=== PATIENT | male | born 1990 | race Caucasian/White ===

== ENCOUNTER 2016-06-17 08:08 | Emergency (ER) | payer MEDICAID ==
--- NOTE | 2016-06-17 09:02 | ED ---
GI/ HPI - HPI Summary HPI Summary: Pt here w/ dysuria and pain after ejaculation x > 1 month. Was evaluated at and tests were WNL at his time of d/c however a cx result later returned w/ positive findings of ureaplasma parvum. Pt did not received anbx during visit and was instructed to f/u w/ PCP. Unfortunately he doesn't have a PCP and therefore did not f/u. He denies fever, chills, N/V/D, nightsweats, weight loss , matias scrotal pain although at times he reports pain in his penis, scrotal area and up into his lower pelvic area - this is unprovoked when it occurs. Denies penile d/c, lesions/sores and no changes of scrotal skin other than possible HPV warts per another provider's evaluation. Denies urinary hesitation , weak stream but he does having discomfort in his perineal area at times. He reports his BM's are normal and non painful. No known h/o prostatitis. No h/o kidney stones nor UTI's. Has unprotected intercourse with 1 girlfriend - states she's "sensitive" and gets yeast infections easily. Other urine cx's reveal neg results for gonorrhea, chalmydia, syphillis, m. homini species. He did not have testing for trichomonas. - History of Current Complaint Chief Complaint: EDUrogenitalProblems Time Seen by Provider: 06/17/16 08:18 Stated Complaint: BURNING WITH URINATION Hx Obtained From: Patient Pain Intensity: 7 - Allergy/Home Medications Allergies/Adverse Reactions: Allergies Allergy/AdvReac Type Severity Reaction Status Date / Time No Known Allergies Allergy Verified 06/17/16 08:15 PMH/Surg Hx/FS Hx/Imm Hx Previously Healthy: Yes GI History: Reports: Other GI Disorders - Hepatitis B - passed from mother Infectious Disease History: No Infectious Disease History: Reports: Hx Hepatitis - A (pt reports B on 06/17/2016) , History Other Infectious Disease - HSV 1 Denies: Traveled Outside the [place] in Last 30 Days - Family History Known Family History: Positive: Cardiac Disease, Other - liver cancer (mom) - Social History Occupation: Student Lives: Alone Alcohol Use: None - w/o ETOH dependence Hx Substance Use: No Substance Use Type: Reports: None Smoking Status (MU): Former Smoker Review of Systems Constitutional: Negative Negative: Chest Pain Negative: Shortness Of Breath Gastrointestinal: Other - see HPI Positive: see HPI Negative: Arthralgia, Myalgia, Edema Skin: Other - see HPI Negative: Headache, Weakness, Paresthesia, Numbness Psychological: Normal All Other Systems Reviewed And Are Negative: Yes Physical Exam Triage Information Reviewed: Yes Vital Signs On Initial Exam: Initial Vitals Temp Pulse Resp BP Pulse Ox 97.4 F 53 16 159/92 100 06/17/16 08:11 06/17/16 08:11 06/17/16 08:11 06/17/16 08:11 06/17/16 08:11 Vital Signs Reviewed: Yes Appearance: Positive: Well-Appearing, No Pain Distress, Well-Nourished Skin: Positive: Warm, Dry Head/Face: Positive: Normal Head/Face Inspection Eyes: Positive: Normal, EOMI, Conjunctiva Clear - anicteric ENT: Positive: Hearing grossly normal, Pharynx normal - mucosa moist Respiratory/Lung Sounds: Positive: Breath Sounds Present Cardiovascular: Positive: Normal, RRR Abdomen Description: Positive: Nontender, No Organomegaly, Soft. Negative: CVA Tenderness (R), CVA Tenderness (L) Bowel Sounds: Positive: Present Male Genital Exam: Positive: normal genitalia, normal prostate - NTTP, other - "bag of worms" Lt > Rt. Negative: no hernia, bleeding, epididymal tenderness, inguinal tenderness, lesions, scrotum tenderness (R), scrotum tenderness (L), testicular tenderness (R), testicular tenderness (L), urethral discharge Musculoskeletal: Positive: Normal, Strength/ROM Intact Neurological: Positive: Normal, Sensory/Motor Intact, Alert, Oriented to Person Place, Time, CN Intact II-III Psychiatric: Positive: Normal Diagnostics - Vital Signs Vital Signs Temp Pulse Resp BP Pulse Ox 06/17/16 08:11 97.4 F 53 16 159/92 100 - Laboratory Lab Statement: Any lab studies that have been ordered have been reviewed, and results considered in the medical decision making process. 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 Complete your course of antibiotics and follow-up with urology for reassessment. If symptoms persist, you may have a different infection as well which was not tested today, trichomonas. Call Dr. Valdes, urologist, today to schedule an appointment next week. You were also found to have varicoceles - these are benign but may affect fertility. Follow-up with Dr. Valdes for this issue as well. *If you develop fever, chills, nausea, vomiting, acute scrotal pain/perineal pain, ab pain or penile discharge, difficulty urinating/moving bowels, return to ED
[2016-06-17 09:09] LABS: Urine Bacteria Absent (Absent); Urine Bilirubin Negative (Negative); Urine Glucose Negative (Negative); Urine Nitrite Negative (Negative)
--- NOTE | 2016-06-17 09:50 | RAD ---
Indication: Bilateral scrotal pain. Real-time sonography of the scrotum was performed. The right testis measures 4.6 x 2.3 x 3.4 cm. No intratesticular masses are noted. Doppler interrogation demonstrates normal flow in the right testis. The right epididymis measures 9 x 14 mm. No hydrocele is noted. Tubular structures are noted consistent with right sided varicocele. This is a small to moderate size. The left testis measures 4.9 x 2.5 x 2.8 cm. No intratesticular masses are noted. Doppler interrogation demonstrates normal flow in the left testis. The epididymal head measures 10 x 14 mm with a epididymal cyst measuring up to 6 mm. Dilated tubular structures with flow are noted in the left scrotum consistent with left-sided varicocele. No evidence of hydrocele is noted. IMPRESSION: NO INTRATESTICULAR MASSES ARE NOTED. DILATED TUBULAR STRUCTURES WITH VENOUS FLOW IS NOTED CONSISTENT WITH BILATERAL VARICOCELES WORSE ON THE LEFT ON THE RIGHT.
[2016-06-17 10:08] VITALS: BP 147/84
== END 2016-06-17 10:07 | disposition home or self-care (01) ==
LOC: ED 08:08
DX: I86.1 Scrotal varices (principal); N34.1 Nonspecific urethritis; Z87.891 Personal history of nicotine dependence; R30.0 Dysuria
CPT/HCPCS: 76870; 81003; 99282

== ENCOUNTER 2017-06-29 07:07 | Emergency (ER) | payer MEDICAID ==
[2017-06-29 07:20] VITALS: BP 143/80
--- NOTE | 2017-06-29 07:57 | UC ---
Shane Lezama Stephanie, scribed for Hattie Glynn MD on 06/29/17 at 0746 . Throat Pain/Nasal Volodymyr HPI - HPI Summary HPI Summary: The pt is a 26 y/o M presenting to with sinus congestion that began one week ago . The Pt attempted to self treat with Mucinex. Symptoms include cough, sinus pressure, a large amount of green/yellow phlegm, daily epistaxis, nasal congestion, nasal pressure, chronic abd and genital pain. Not using analgesics or nasal sprays. Denies ear pressure, ear pain, SOB, sore throat, fever, nausea and vomiting. The pt reports having an influenza-like illness with fever for the past 3 weeks that has mostly cleared up. - History of Current Complaint Chief Complaint: UCGeneralIllness Stated Complaint: SINUS ISSUE Time Seen by Provider: 06/29/17 07:15 Hx Obtained From: Patient Onset/Duration: Gradual Onset, Lasting Weeks - 1, Still Present Severity: Moderate Pain Intensity: 1 Pain Scale Used: 0-10 Numeric Cough: Sputum Appears - green/yellow Associated Signs & Symptoms: Positive: Sinus Discomfort. Negative: Fever, Vomiting - Allergies/Home Medications Allergies/Adverse Reactions: Allergies Allergy/AdvReac Type Severity Reaction Status Date / Time No Known Allergies Allergy Verified 06/29/17 07:20 Home Medications: Home Medications Guaifenesin [Mucinex Maximum Strength] 1,200 mg PO DAILY PRN 06/29/17 [History Confirmed 06/29/17] Omeprazole 40 mg PO DAILY 06/29/17 [History Confirmed 06/29/17] PMH/Surg Hx/FS Hx/Imm Hx - Additional Past Medical History Additional PMH: epigastric pain evaluated late 2016 with egd Previously Healthy: Yes GI/ History: Other - chronic epigastric pain, history of pancreatitis Other GI/ History: pancreatitis Other History Of: Hepatitis B - Surgical History Surgical History: None - Family History Known Family History: Positive: Cardiac Disease, Other - liver cancer (mom), father of dementia - Social History Occupation: Employed Part-time Lives: Alone Alcohol Use: None Substance Use Type: None Smoking Status (MU): Former Smoker - Immunization History Most Recent Influenza Vaccination: declined Review of Systems Constitutional: Negative Skin: Negative Eyes: Negative ENT: Sinus Congestion, Sinus Pain/Tenderness, Other - daily nose bleeds, green/ yellow phlegm Respiratory: Cough Cardiovascular: Negative Gastrointestinal: Abdominal Pain - gets about 90% reduction of pain with regular use of omeprazole. Drinking about 2 cups of coffee per day, no alcohol Genitourinary: Other - chronic left groin pain, evaluated by urology without cause found. Motor: Negative Neurovascular: Negative Musculoskeletal: Negative Neurological: Negative Psychological: Negative All Other Systems Reviewed And Are Negative: Yes Physical Exam Triage Information Reviewed: Yes Appearance: Well-Appearing Vital Signs: Initial Vital Signs Temp 99 F 06/29/17 07:16 Pulse 61 06/29/17 07:16 Resp 20 06/29/17 07:16 BP 143/80 06/29/17 07:16 Pulse Ox 99 06/29/17 07:16 Eye Exam: Normal Eyes: Positive: Conjunctiva Clear ENT: Positive: Pharynx normal, Nasal congestion - boggy nasal mucosa, TMs normal Neck: Positive: Supple, Nontender, No Lymphadenopathy Respiratory: Positive: Lungs clear, Normal breath sounds Cardiovascular: Positive: RRR, No Murmur Abdomen Description: Positive: Nontender, No Organomegaly Musculoskeletal Exam: Normal Neurological Exam: Normal Psychological Exam: Normal Skin Exam: Normal Throat Pain/Nasal Course/Dx - Course Course Of Treatment: The pt is a 26 y/o M with c/o sinus congestion with yellow/ green phlegm that began one week ago. The pt reports a previous flu like illness that lasted over the past 3 weeks but has since mostly resolved. Pt medications reviewed this visit. - Differential Dx/Diagnosis Differential Diagnosis/HQI/PQRI: Pharyngitis, Sinusitis, URI Provider Diagnoses: acute bilateral maxillary sinusitis. Discharge - Discharge Plan Condition: Stable Disposition: HOME Prescriptions: Amoxicillin/Clavulanate TAB* [Augmentin TAB 875*] 875 mg PO BID #20 tab Patient Education Materials: Sinusitis (ED) Referrals: Paulo Puente MD [Primary Care Provider] - Additional Instructions: For sinus infection, begin augmentin 875mg twice daily. This can cause loose stools. You can take it with food, and eat yogurt and probiotic foods to decrease the diarrhea. To relieve sinus pressure, I suggest Flonase 2 sprays to both nostrils once daily to help shrink the swelling in the nasal passages. This should not cause rebound symptoms. You can also use saline spray (Newberry spray) to the nostrils to help to decrease the nose bleeds. This is safe to use regularly. Swabbing just inside the nasal passage with a little bit of topical antibiotic on a Qtip followed by saline spray at night often helps to decrease the nose bleeds. The documentation as recorded by the tanviribShane cameron Stephanie accurately reflects the service I personally performed and the decisions made by me, Hattie Glynn MD.
== END 2017-06-29 07:45 | disposition home or self-care (01) ==
LOC: UCEAST 07:07
DX: J01.00 Acute maxillary sinusitis, unspecified (principal); R10.13 Epigastric pain; G89.29 Other chronic pain; B19.10 Unspecified viral hepatitis B without hepatic coma; Z87.891 Personal history of nicotine dependence
CPT/HCPCS: 99212; G0463

== ENCOUNTER 2017-09-04 16:30 | Emergency (ER) | payer MEDICAID ==
[2017-09-04 16:41] VITALS: BP 135/71
--- NOTE | 2017-09-04 16:57 | ED ---
Abdominal Pain/Male - HPI Summary HPI Summary: 27-year-old male presents with the bowel pain for the past 5 months. He states he was seen by GI has scoped on a month and a half ago. He states his scope was normal except for yeast. He states he was given medication for it without relief. He states that he takes omeprazole daily. He states his symptoms have not changed all expect for intensity. He denies any fevers. Denies any nausea vomiting. States his pain does not change with food. He has a follow-up with GI in a couple weeks. He is looking for something more for the pain. has a history of pancreatitis but states does not feel like such. has not been drinking. patient admits to dysuria but declined to give urine sample. no flank pain or hematuria. - History of Current Complaint Chief Complaint: UCAbdominalPain Stated Complaint: ABDOMINAL PAIN Time Seen by Provider: 09/04/17 16:47 Pain Intensity: 7 - Allergies/Home Medications Allergies/Adverse Reactions: Allergies Allergy/AdvReac Type Severity Reaction Status Date / Time No Known Allergies Allergy Verified 09/04/17 16:41 Home Medications: Home Medications Calcium Carbonate CHEW TAB* [Tums*] PRN 09/04/17 [History] PMH/Surg Hx/FS Hx/Imm Hx Endocrine/Hematology History: Denies: Hx Diabetes Cardiovascular History: Denies: Hx Hypertension GI History: Reports: Other GI Disorders - Hepatitis B - passed from mother, pancreatitis Denies: Hx Jaundice History: Denies: Hx Renal Disease - Surgical History Surgery Procedure, Year, and Place: ENDOSCOPY Infectious Disease History: No Infectious Disease History: Reports: Hx Hepatitis - HEP B, ? HEP A, History Other Infectious Disease - HSV 1 Denies: Traveled Outside the [place] in Last 30 Days - Family History Known Family History: Positive: Unknown, Cardiac Disease, Other - liver cancer ( mom), father of dementia - Social History Alcohol Use: None Hx Substance Use: Yes Substance Use Type: Reports: None Smoking Status (MU): Current Some Day Smoker Review of Systems Negative: Fever Negative: Chest Pain Negative: Shortness Of Breath Positive: Abdominal Pain. Negative: Vomiting, Diarrhea, Nausea All Other Systems Reviewed And Are Negative: Yes Physical Exam Triage Information Reviewed: Yes Vital Signs On Initial Exam: Initial Vitals Temp Pulse Resp BP Pulse Ox 98.6 F 65 16 135/71 99 09/04/17 16:35 03/26/18 16:35 09/04/17 16:35 09/04/17 16:35 09/04/17 16:35 Vital Signs Reviewed: Yes Appearance: Positive: Well-Appearing Skin: Positive: Warm, Dry Head/Face: Positive: Normal Head/Face Inspection Eyes: Positive: Normal, EOMI, JESSICA, Conjunctiva Clear ENT: Positive: Normal ENT inspection, Pharynx normal, TMs normal Respiratory/Lung Sounds: Positive: Clear to Auscultation, Breath Sounds Present Cardiovascular: Positive: Normal, RRR Abdomen Description: Positive: Soft, Other: - mild LUQ tenderness Bowel Sounds: Positive: Present Musculoskeletal: Positive: Normal Neurological: Positive: Normal Psychiatric: Positive: Normal Diagnostics - Vital Signs Vital Signs Temp Pulse Resp BP Pulse Ox 09/04/17 16:35 98.6 F 65 16 135/71 99 - Laboratory Lab Statement: Any lab studies that have been ordered have been reviewed, and results considered in the medical decision making process. Abdominal Pain Fem Course/Dx - Course Course Of Treatment: 27-year-old male presents with the bowel pain for the past 5 months. He states he was seen by GI has scoped on a month and a half ago. He states his scope was normal except for yeast. He states he was given medication for it without relief. He states that he takes omeprazole daily. He states his symptoms have not changed all expect for intensity. He denies any fevers. Denies any nausea vomiting. States his pain does not change with food. He has a follow-up with GI in a couple weeks. He is looking for something more for the pain. on exam mild LUQ pain. discussed will add maalox for pain as likely related to gastritis. told if anything changes to get evualuated in the ED. told to follow up with GI for continued care. will have follow up with primary as blood pressure in pre-htn range. patient understand and agrees with plan. - Diagnoses Differential Diagnosis/HQI/PQRI: Pancreatitis, Urinary Tract Infection, Other - gastritis Provider Diagnoses: Abdominal pain Discharge - Sign-Out/Discharge Documenting (check all that apply): Discharge - Discharge Plan Condition: Good Disposition: HOME Prescriptions: Al Hydrox/Mg Hydrox/Simet LIQ* [Maalox Plus*] 30 ml PO Q6H PRN #1 bottle PRN Reason: Indigestion Patient Education Materials: Diet for Stomach Ulcers and Gastritis (ED) Referrals: Paulo Puente MD [Primary Care Provider] - Additional Instructions: Take maalox 30ml every 6 hours for stomach pain continue omeprazole as prescribed Follow up with GI Return to ED if develop any new or worsening symptoms - Billing Disposition and Condition Condition: GOOD Disposition: HOME
== END 2017-09-04 17:09 | disposition home or self-care (01) ==
LOC: UCEAST 16:30
DX: R10.12 Left upper quadrant pain (principal); B19.10 Unspecified viral hepatitis B without hepatic coma; Z72.0 Tobacco use
CPT/HCPCS: 99212; G0463

== ENCOUNTER 2018-02-21 11:01 | Emergency (ER) | payer MEDICAID ==
[2018-02-21 11:37] VITALS: BP 148/60
--- NOTE | 2018-02-21 11:46 | UC ---
Eye Complaint HPI - HPI Summary HPI Summary: 27 yo male presents with "eye strain". 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 Since starting that job he has had pain in his eyes worse as the day goes on. Also develops a headache mostly in the back of his head. He has taken ibuprofen with mild relief. Has never seen an eye doctor, but says his vision is fine. Denies fever, chills, dizziness, vision changes, trauma, redness, sinus symptoms, sore throat, cough, SOB, chest pain. - History of Current Complaint Chief Complaint: UCEye Stated Complaint: EYE COMPLAINT Time Seen by Provider: 02/21/18 11:46 Hx Obtained From: Patient Onset/Duration: Gradual Onset Severity Initially: Moderate Severity Currently: Moderate Pain Intensity: 5 Pain Scale Used: 0-10 Numeric - Allergies/Home Medications Allergies/Adverse Reactions: Allergies Allergy/AdvReac Type Severity Reaction Status Date / Time No Known Allergies Allergy Verified 02/21/18 11:37 Home Medications: Home Medications Ibuprofen [[employer] [employer] Ibuprofen] 500 mg PO ONCE PRN 02/21/18 [History Confirmed 02/21/18] PMH/Surg Hx/FS Hx/Imm Hx - Additional Past Medical History Additional PMH: None Other History Of: Hepatitis B - Surgical History Surgical History: Yes Surgery Procedure, Year, and Place: ENDOSCOPY - Family History Known Family History: Positive: Unknown, Cardiac Disease, Other - liver cancer ( mom), father of dementia - Social History Occupation: Employed Full-time Lives: With Family Alcohol Use: None Substance Use Type: None Smoking Status (MU): Current Some Day Smoker - Immunization History Most Recent Influenza Vaccination: declined Review of Systems Constitutional: Negative Skin: Negative Eyes: Other - Eye pain ENT: Negative Respiratory: Negative Cardiovascular: Negative Neurovascular: Negative Neurological: Negative Psychological: Negative All Other Systems Reviewed And Are Negative: Yes Physical Exam - Summary Physical Exam Summary: GENERAL: WDWN. No pain distress. SKIN: No rashes, sores, lesions, or open wounds. HEENT: Head: AT/NC Eyes: EOM intact. PERRLA. B/L Eyes without erythema, edema, injection, or discharge. No FBs appreciated. NTTP orbits. Nose: NTTP maxillary and frontal sinus. NECK: Supple. Nontender. No lymphadenopathy. CHEST: CTAB. No r/r/w. No accessory muscle use. Breathing comfortably and in no distress. CV: RRR. Without m/r/g. Pulses intact. Cap refill <2seconds MSK: Cervical spine: NTTP. FROM. NEURO: Alert. PSYCH: Age appropriate behavior. Triage Information Reviewed: Yes Vital Signs: Initial Vital Signs Temp 98.2 F 02/21/18 11:33 Pulse 65 02/21/18 11:33 Resp 18 02/21/18 11:33 BP 148/60 02/21/18 11:33 Pulse Ox 100 02/21/18 11:33 Vital Signs Reviewed: Yes Eye Complaint Course/Dx - Course Course Of Treatment: OS/OD/OU 20/20. Suspect pt is experiencing his symptoms due to his new job and straining his eyes at work. Strongly advised him to f/u with an eye doctor for an eye exam. - Differential Dx/Diagnosis Provider Diagnoses: Eye strain Discharge - Sign-Out/Discharge Documenting (check all that apply): Patient Departure All imaging exams completed and their final reports reviewed: No Studies - Discharge Plan Condition: Stable Disposition: HOME Prescriptions: Cyclobenzaprine TAB* [Flexeril 10 MG TAB*] 10 mg PO BID PRN #14 tab PRN Reason: Pain Patient Education Materials: Eye Pain (ED) Referrals: Paulo Puente MD [Primary Care Provider] - Navid Jensen MD [Medical Doctor] - As Soon As Possible Additional Instructions: If you develop a fever, shortness of breath, chest pain, new or worsening symptoms - please call your PCP or go to the ED. 1) Please call an [facility] to schedule an eye exam. Information for some have been provided below [facility] Address: [place] [address] - Billing Disposition and Condition Condition: STABLE Disposition: Home
== END 2018-02-21 12:16 | disposition home or self-care (01) ==
LOC: UCEAST 11:01
DX: H53.10 Unspecified subjective visual disturbances (principal); F17.200 Nicotine dependence, unspecified, uncomplicated
CPT/HCPCS: 99212; G0463

== ENCOUNTER 2018-05-31 07:31 | Emergency (ER) | payer MEDICAID ==
[2018-05-31 07:41] VITALS: BP 126/85
--- NOTE | 2018-05-31 08:05 | UC ---
Throat Pain/Nasal Volodymyr HPI - HPI Summary HPI Summary: 27-year-old male comes in to clinic with a chief complaint of sore throat. Been going on for 3 days. He does have a runny nose. Some cough but overall no chest congestion. He's tried a throat lozenge that helped briefly but then the throat pain came right back. Swallowing makes the pain worse. No fevers recorded. - History of Current Complaint Chief Complaint: UCRespiratory Stated Complaint: SORE THROAT RESP ISSUE Time Seen by Provider: 05/31/18 07:55 Pain Intensity: 7 - Allergies/Home Medications Allergies/Adverse Reactions: Allergies Allergy/AdvReac Type Severity Reaction Status Date / Time No Known Allergies Allergy Verified 05/31/18 07:41 PMH/Surg Hx/FS Hx/Imm Hx Previously Healthy: Yes Other History Of: Hepatitis B - Surgical History Surgical History: None Surgery Procedure, Year, and Place: ENDOSCOPY - Family History Known Family History: Positive: Unknown, Cardiac Disease, Other - liver cancer ( mom), father of dementia - Social History Alcohol Use: None Substance Use Type: None Smoking Status (MU): Former Smoker - Immunization History Most Recent Influenza Vaccination: declined Review of Systems All Other Systems Reviewed And Are Negative: Yes Constitutional: Positive: Negative Skin: Positive: Negative Eyes: Positive: Negative ENT: Positive: Sore Throat, Nasal Discharge, Sinus Congestion Respiratory: Positive: Negative Cardiovascular: Positive: Negative Gastrointestinal: Positive: Negative Motor: Positive: Negative Neurovascular: Positive: Negative Musculoskeletal: Positive: Negative Neurological: Positive: Negative Psychological: Positive: Negative Is Patient Immunocompromised?: No Physical Exam Triage Information Reviewed: Yes Appearance: No Pain Distress, Well-Nourished, Ill-Appearing - MILD Vital Signs: Initial Vital Signs Temp 98.0 F 05/31/18 07:35 Pulse 58 05/31/18 07:35 Resp 16 05/31/18 07:35 BP 126/85 05/31/18 07:35 Pulse Ox 98 05/31/18 07:35 Vital Signs Reviewed: Yes Eye Exam: Normal Eyes: Positive: Conjunctiva Clear ENT: Positive: Pharyngeal erythema, Nasal congestion, Nasal drainage, TMs normal , Uvula midline Neck exam: Normal Neck: Positive: Supple Respiratory: Positive: Lungs clear, Normal breath sounds, No respiratory distress Cardiovascular: Positive: RRR Musculoskeletal Exam: Normal Musculoskeletal: Positive: Strength Intact, ROM Intact Neurological Exam: Normal Neurological: Positive: Alert, Muscle Tone Normal Psychological Exam: Normal Psychological: Positive: Age Appropriate Behavior Skin Exam: Normal Throat Pain/Nasal Course/Dx - Course Course Of Treatment: We discussed viral versus bacterial infections and the role of antibiotics. We discussed getting a rapid strep test. At this time the patient prefers to be on antibiotic. - Differential Dx/Diagnosis Provider Diagnosis: Pharyngitis Discharge - Sign-Out/Discharge Documenting (check all that apply): Patient Departure All imaging exams completed and their final reports reviewed: No Studies - Discharge Plan Condition: Stable Disposition: HOME Prescriptions: Amoxicillin/Clavulanate TAB* [Augmentin TAB 875*] 875 mg PO BID #20 tab Patient Education Materials: Pharyngitis (ED) Referrals: Paulo Puente MD [Primary Care Provider] - Additional Instructions: FOLLOW UP WITH YOUR DOCTOR IF NOT COMPLETELY IMPROVED. GET RECHECKED FOR ANY WORSENING OF YOUR CONDITION OR QUESTIONS OR CONCERNS. - Billing Disposition and Condition Condition: STABLE Disposition: Home
== END 2018-05-31 08:10 | disposition home or self-care (01) ==
LOC: UCEAST 07:31
DX: J02.9 Acute pharyngitis, unspecified (principal); R09.89 Other specified symptoms and signs involving the circulatory and respiratory systems; Z87.891 Personal history of nicotine dependence
CPT/HCPCS: 99212; G0463

== ENCOUNTER → 2018-09-27 10:48 | Day surgery (SDC) | payer SELFPAY ==
[~2018-09-27 10:48] MED LIST: Atracurium* 10 MG/ML 10 ML VIAL ONE; Buffered Lidocaine 1% SYRIN* 1 ML/SYRINGE INTRADERM ONE; Bupivacaine 0.25% SDV PF* 10 ML VIAL INJ ONE; Bupivacaine 0.5%* 50 ML VIAL ONE; Dexamethasone TAB* 4 MG ONE; Dexamethasone TAB* 4 MG PO ONE; DiMENhydriNATE IV* 50 MG/ML VIAL IV PUSH PRN; Famotidine IV* 10 MG/ML 2 ML (20 mg) IV ONE; Famotidine IV* 10 MG/ML 2 ML (20 mg) ONE; Flumazenil* 0.1 MG/ML 5 ML MDV ONE; Glycopyrrolate IV* 0.2 MG/ML 1 ML VIAL ONE; KETAMINE HCL* 50 MG/ML 10 ML VIAL ONE; Lactated Ringers 1000 ML Bag* 1,000 ML IV SCH; Lidocaine 2% PF * 5 ML VIAL ONE; Midazolam* 1 MG/ML 5 ML VIAL (5 MG) ONE; Morphine 4 MG/ML VIAL (1 ml) 4 MG/ML VIAL IV PRN; Morphine 4 MG/ML VIAL (1 ml) 4 MG/ML VIAL ONE; Naloxone* 0.4 MG/ML 1 ML VIAL IV PRN; Neostigmine Methylsulfate* 1 MG/ML 10 ML VIAL (1 mg/ml) ONE; Ondansetron ODT TAB* 4 MG ONE; Ondansetron TAB* 4 MG PO ONE; PROCHLORPERAZINE INJ 5 MG/ML 2 ML VIAL IV PRN; Propofol* 10 MG/ML 20 ML BTL ONE; Scopolamine 1.5 mg* PATCH TRANSDERM PRN; Scopolamine PATCH Remove* 1 NOTE MISC PATCH OFF ONE; ceFAZolin 2 GM in NS PREMIX(*) 2 GM/100 ML BAG IVPB ONE; fentaNYL* 50 MCG/ML 2 ML VIAL (100 MCG VIAL) ONE; fentaNYL* 50 MCG/ML 5 ML VIAL (250 MCG VIAL) ONE; nitroGLYCERIN IV VIAL* 5 MG/ML VIAL ONE; oxyCODONE/Acetamin 5/325 MG* TAB ONE
[2018-09-27] MEDS: oxyCODONE/Acetamin 5/325 MG* TAB PO PRN ×2 (15:12→15:15)
[2018-09-27] MEDS: fentaNYL* 50 MCG/ML 2 ML VIAL (100 MCG VIAL) IV PRN ×2 (15:39→16:07)
--- NOTE | 2018-09-27 15:58 | OP ---
Operative Report - Blank - Operative Report Date of Operation: 09/27/18 Note: PATIENT: Froy Lr DATE OF : 1990 DATE OF SURGERY: 09/27/2018 SURGEON: Trell Batista MD CLIENT CARE REPRESENTATIVE: BLAIR Ross, whos assistance was necessary for positioning, retraction, help with instrumentation, and closure. ANESTHESIOLOGIST: Dr. Fair PREOPERATIVE DIAGNOSIS: Left Achilles tendon rupture POSTOPERATIVE DIAGNOSIS: Left Achilles tendon rupture OPERATION: Left Achilles tendon repair ANESTHESIA: General IMPLANTS: none TOURNIQUET TIME: Less than 60 minutes with a well-padded thigh tourniquet at 250mmHg SPECIMENS: none ESTIMATED BLOOD LOSS: minimal COMPLICATIONS: none STATUS: Stable from the operating room to the recovery room and then home. INDICATIONS FOR PROCEDURE: Froy sustained a left Achilles tendon rupture playing soccer. Both operative and non operative treatment alternatives were reviewed. Further, the nature and risks of surgery were reviewed in careful detail in the office as well as in the preoperative holding area. Our discussions regarding the risks of surgery included, but were not limited to, infection, wound problems, nerve injury, neuroma, RSD, persistent symptoms, blood clot, re-rupture or failure to heal, failure of the surgery, and even the remote chance of catastrophic complication , including loss of limb. DESCRIPTION OF PROCEDURE: The patient was seen in the preoperative holding unit and informed written consent was obtained. The appropriate extremity was marked. The patient was then brought to the operating room and carefully positioned on the operating room table. Anesthesia was induced. All bony prominences were padded with great care. A well-padded thigh tourniquet was placed. A chlorhexidine based pre- scrub was performed followed by a chloraprep prep and drape in standard sterile fashion. A surgical safety pause was then conducted in which we confirmed the appropriate patient, extremity, planned procedure, availability of equipment, indication and administration of prophylactic antibiotics, and DVT prophylaxis in the form of a compression boot on the non-surgical extremity. An Esmarch exsanguination of the extremity was performed and the tourniquet was inflated. I then began by making a 3 cm incision slightly posteromedial overlying the Achilles tendon. I carried the dissection down through the soft tissue and exposed the peritenon. I then came through this sharply in line with the Achilles. I exposed the Achilles tendon, which was completely ruptured. We irrigated out hematoma. At this point, I utilized an Allis clamp to pull the proximal segment distally and passed a malleable between the tendon and the peritenon posteriorly. This mobilized the proximal segment back to its proper location. I then passed a bent ringed forceps within the peritenon around the tendon proximally. We used a Christopher needle to pass #2 Fiberwire through the skin and then through the forceps, Achilles, and then through the other side. By pulling the forceps back out of the wound, we brought the suture out through the wound having been passed through the tendon. We repeated this two additional times, moving approximately 1 cm distally through the proximal segment. We similarly used the bent forceps to pass 3 strands of #2 Fiberwire through the distal segment. These sutures all had excellent purchase on the tendon. At this point, we placed a bump underneath the dorsum of the left foot to plantarflex the ankle. We then tied the sutures together, positioning the knot away from the skin edges. This nicely reapproximated the tendon ends with resting tension of the Achilles similar to the contralateral extremity, which had been assessed prior to prepping and draping. There was a restored Oden test. We then irrigated copiously. We closed in layers meticulously utilizing 0 Vicryl for the peritenon layer, 3-0 Monocryl for the subdermal layer, and 3-0 nylon for the skin. A sterile dressing was then applied followed by a splint with the ankle in resting equinus position. The patient was then awakened from anesthesia and transferred to the recovery room in stable condition. There were no complications. All needle and sponge counts were correct at the end of the case. ATTESTATION: I attest I was present and scrubbed and performed the critical portions of the procedure myself. POSTOPERATIVE PLAN: The patient will remain [id number] for two weeks and follow up in two weeks for likely suture removal and Steri-Strip application. We will then progress via my postoperative protocol.
[2018-09-27 17:20] VITALS: BP 135/82
== END | disposition home or self-care (01) ==
LOC: OR 10:48
PROVIDERS: ATTEND Orthopaedic Surgery
DX: S86.012A Strain of left Achilles tendon, initial encounter (principal); F17.210 Nicotine dependence, cigarettes, uncomplicated; W21.02XA Struck by soccer ball, initial encounter; Y93.66 Activity, soccer; Y92.328 Other athletic field as the place of occurrence of the external cause
CPT/HCPCS: A9270-GY; J0690; J2250; J2270; J2704; J2710; J3010; J3490; J8540

== ENCOUNTER 2019-02-11 06:45 | Emergency (ER) | payer MEDICAID, OTHER ==
--- NOTE | 2019-02-11 07:22 | ED ---
Dizziness - HPI Summary HPI Summary: This patient is a 28 year old M presenting to [facility] with a chief complaint of dizziness since 1 month ago. Patient reports unquenchable thirst and dry mouth. Patient states he drinks 3 gallons of water each day. Patient reports frequent urination. Patient states that he gets up to urinate 4-5 times per night, resulting in lack of sleep. Patient reports recent weight loss and fatigue. Patient states that he plays soccer. Patient states that he tore his Achilles tendon in September 2018. Since then, patient states he has been less active which is why he thought he was losing weight. Patient denies pain. The patient rates the pain 0/10 in severity. Symptoms aggravated by nothing. Symptoms alleviated by nothing. Patient additionally complains that his heart occasionally skips a beat after which he states he has chest tightness which is alleviated by raising his left arm. Patient states that this is chronic. Patient states that he uses a NicoDerm patch. Patient takes probiotics and enzymes, and denies any other medications. - History Of Current Complaint Chief Complaint: EDDizziness Stated Complaint: DIZZY PER PT Time Seen by Provider: 02/11/19 07:01 Hx Obtained From: Patient Onset/Duration: Still Present Timing: Constant Severity Currently: None Character: Dizzy Aggravating Factor(s): Nothing Alleviating Factor(s): Nothing Associated Signs And Symptoms: Positive: Other: - unquenchable thirst and dry mouth, frequent urination, lack of sleep, recent weight loss and fatigue - Allergies/Home Medications Allergies/Adverse Reactions: Allergies Allergy/AdvReac Type Severity Reaction Status Date / Time DDT Allergy Difficulty Uncoded 02/11/19 06:48 Breathing Home Medications: Home Medications L. Acidophilus/Dig Enz Cmb 5 [Probiotic-Digestive Enzymes] 1 each PO TID [History Confirmed 02/11/19] PMH/Surg Hx/FS Hx/Imm Hx Endocrine/Hematology History: Denies: Hx Diabetes Cardiovascular History: Denies: Hx Hypertension, Hx Pacemaker/ICD, Other Cardiovascular Problems/ Disorders Respiratory History: Denies: Other Respiratory Problems/Disorders GI History: Denies: Hx Jaundice, Other GI Disorders History: Denies: Hx Renal Disease, Other Problems/Disorders Musculoskeletal History: Reports: Other Musculoskeletal History - Torn achilles tendon- left Denies: Hx Rheumatoid Arthritis, Hx Osteoporosis Sensory History: Denies: Hx Contacts or Glasses, Hx Hearing Aid Opthamlomology History: Denies: Hx Contacts or Glasses Neurological History: Denies: Other Neuro Impairments/Disorders Psychiatric History: Denies: Hx Panic Disorder - Surgical History Surgery Procedure, Year, and Place: ENDOSCOPY. left Achilles tendon repair 09/27 Hx Anesthesia Reactions: No Infectious Disease History: Yes Infectious Disease History: Reports: Hx Hepatitis - HEP B, History Other Infectious Disease - HSV 1 Denies: Traveled Outside the [place] in Last 30 Days - Family History Known Family History: Positive: Cardiac Disease, Other - liver cancer (mom), father of dementia - Social History Alcohol Use: None Hx Substance Use: No Substance Use Type: Reports: None Hx Tobacco Use: Yes Smoking Status (MU): Current Some Day Smoker Type: Cigarettes Amount Used/How Often: Rarely Have You Smoked in the Last Year: Yes Review of Systems Positive: Fatigue, Other - unquenchable thirst and dry mouth Positive: Other - recent weight loss Positive: frequency - urination Neurological: Other - Dizziness Positive: Other - lack of sleep All Other Systems Reviewed And Are Negative: Yes Physical Exam - Summary Physical Exam Summary: Appearance: The patient is well-nourished in no acute distress and in no acute pain. Skin: The skin is warm and dry and skin color reflects adequate perfusion. HEENT: The head is normocephalic and atraumatic. The pupils are equal and reactive. The conjunctivae are clear and without drainage. Nares are patent and without drainage. Mouth reveals dry mucous membranes and the throat is without erythema and exudate. The external ears are intact. The ear canals are patent and without drainage. The tympanic membranes are intact. Neck: The neck is supple with full range of motion and non-tender. There are no carotid bruits. There is no neck vein distension. Respiratory: Chest is non-tender. Lungs are clear to auscultation and breath sounds are symmetrical and equal. Cardiovascular: Heart is regular rate and rhythm. There is no murmur or rub auscultated. There is no peripheral edema and pulses are symmetrical and equal. Abdomen: The abdomen is soft and non-tender. There are normal bowel sounds heard in all four quadrants and there is no organomegaly palpated. Musculoskeletal: There is no back tenderness noted. Extremities are non-tender with full range of motion. There is good capillary refill. There is no peripheral edema or calf tenderness elicited. Neurological: Patient is alert and oriented to person, place and time. The patient has symmetrical motor strength in all four extremities. Cranial nerves are grossly intact. Deep tendon reflexes are symmetrical and equal in all four extremities. Triage Information Reviewed: Yes Vital Signs On Initial Exam: Initial Vitals Temp Pulse Resp BP Pulse Ox 98.5 F 79 15 133/102 98 02/11/19 06:46 02/11/19 06:46 02/11/19 06:46 02/11/19 06:46 02/11/19 06:46 Vital Signs Reviewed: Yes Diagnostics - Vital Signs Vital Signs Temp Pulse Resp BP Pulse Ox 02/11/19 07:01 67 20 99 02/11/19 06:58 75 20 100 02/11/19 06:56 70 150/99 98 02/11/19 06:46 98.5 F 79 15 133/102 98 - Laboratory Lab Results: Lab Results 02/11/19 Range/Units 06:51 POC Glucose (mg/dL) > 444 H* (70-100) mg/dL Result Diagrams: 02/11/19 07:06 02/11/19 07:08 Lab Statement: Any lab studies that have been ordered have been reviewed, and results considered in the medical decision making process. Dizzy Course/Dx - Course Course Of Treatment: Mr. Lr was found to be quite hyperglycemic without being in DKA. He was given fluids and an insulin bolus and drip was started prior to his labs coming back with a concern that he was likely in DKA. I consult to the hospitalist Dr. Khalil and she came to the department and evaluated the patient. - Diagnoses Provider Diagnoses: Hyperglycemia without ketosis - Provider Notifications Discussed Care Of Patient With: Asha Khalil Time Discussed With Above Provider: 08:35 Instructed by Provider To: Other - Dr. Khalil, Hospitalist, agrees to consult Discharge ED - Sign-Out/Discharge Documenting (check all that apply): Patient Departure - Discharge Patient Received Moderate/Deep Sedation with Procedure: No - Discharge Plan Condition: Good Disposition: HOME Prescriptions: Insulin Glargine,Hum.rec.anlog [Lantus Solostar 5x3 ML PENS] 10 units SUBCUT DAILY #1 box Pen Needle, Diabetic [Ultra-Fine Micro Pen Needle] 1 each MC DAILY #100 dis.needle Referrals: Concepcion George NP [Medical Doctor] - (This is the [employer]. ) Paulo Puente MD [Primary Care Provider] - (Follow up with Dr Puente in 4-7 days or establish with [facility] internal medicine (they have an office just up the road from the hospital) [phone].) Juan Jose Cuenca MD [Medical Doctor] - (Try to get appointment for 1-2 weeks. ) Additional Instructions: 1. Activity as tolerated. 2. Return to the ER for any concerning issues. - Billing Disposition and Condition Condition: GOOD Disposition: Home - Attestation Statements Document Initiated by Scribe: Yes Documenting Scribe: Angeles Ramirez Provider For Whom Fern is Documenting (Include Credential): Nirmal Thompson MD Scribe Attestation: Angeles Lezama , scribed for Nirmal Thompson MD on 02/11/19 at 1528. Scribe Documentation Reviewed: Yes Provider Attestation: The documentation as recorded by the Angeles guan accurately reflects the service I personally performed and the decisions made by me, Nirmal Thompson MD Status of Scribe Document: Viewed
[2019-02-11 07:28] LABS: ABS Eosinophils 0.1 10^3/ul (0-0.6); ABS Lymphocytes 1.7 10^3/ul (1.0-4.8); ABS Monocytes 0.4 10^3/ul (0-0.8); ABS Neutrophils 2.5 10^3/ul (1.5-7.7); Eosinophil % 1.4 %; Hematocrit 44 % (42-52); Hemoglobin 15.6 g/dL (14.0-18.0); Lymphocyte % 36.4 %; Mean Corpuscular HGB Conc 35 g/dL (31-36); Mean Corpuscular Hemoglobin 30 pg (27-31); Mean Corpuscular Volume 85 fL (80-94); Mean Platelet Volume 8.5 fL (7.4-10.4); Nucleated Red Blood Cells % 0.2; Platelet Count 211 10^3/uL (150-450); Red Blood Count 5.22 10^6 /uL (4.18-5.48); Red Cell Distribution Width 13 % (10-15); White Blood Count 4.7 10^3/uL (3.5-10.8)
[2019-02-11] MEDS ORDERED: Insulin REGULAR(*) 1 UNITS UNIT IV PUSH ONE (07:38)
[2019-02-11] MEDS ORDERED: NS 0.9% 1000 ML** 1,000 ML IV ONE (07:38)
[2019-02-11 07:55] LABS: ALT 23 U/L (7-52); AST 16 U/L (13-39); Albumin 4.3 g/dL (3.2-5.2); Albumin/Globulin Ratio 1.7 (1-3); Alkaline Phosphatase 74 U/L (34-104); Anion Gap 7 mmol/L (2-11); Blood Urea Nitrogen 16 mg/dL (6-24); C Reactive Protein < 1.00 mg/L (<8.01); CO2 Carbon Dioxide 29 mmol/L (22-32); Calcium 9.6 mg/dL (8.6-10.3); Chloride 95 mmol/L (101-111); EGFR African American 106.2 (>60); EGFR Non-African American 87.7 (>60); Globulin 2.6 g/dL (2-4); Potassium 4.1 mmol/L (3.5-5.0); Sodium 131 mmol/L (135-145); Total Protein 6.9 g/dL (6.4-8.9)
[2019-02-11] MEDS ORDERED: Insulin Infusion 100unit/100mL 100 UNITS/100 ML UNIT IV SCH (08:00)
[2019-02-11 08:03] LABS: Glucose 692 mg/dL (70-100)
[2019-02-11] MEDS ORDERED: Insulin GLARGINE(*) 1 UNITS UNIT SUBCUT ONE (09:08)
[2019-02-11 11:12] VITALS: BP 146/78
--- NOTE | 2019-02-11 13:08 | CONS ---
CC: Dr. Puente* CONSULTATION REPORT: DATE OF CONSULT: 02/11/19 PRIMARY CARE PROVIDER: Dr. Puente. CHIEF COMPLAINT: Increased thirst, increased urination, mild blurry vision and weight loss. HISTORY OF PRESENT ILLNESS: Mr. Lr is a 28-year-old generally healthy male who states that over the last 2 weeks or so, he has noticed increased thirst, increased urination. He felt as if his vision has been blurry and he has lost about 20 pounds in the last 2 months. He was out to [facility] the day prior to admission. He states that he was eating poorly and developed some dizziness. When he got home, he told himself he still felt poorly in the morning , he would present to the emergency room for evaluation. The patient states that he still had some mild dizziness and therefore he presented to the ER for evaluation. The patient was found to have a markedly elevated blood sugar of 692. He had mild hyponatremia that corrects because of the hyperglycemia. His labs otherwise have no abnormal findings. Because of the marked hyperglycemia, I was asked to see patient in consultation. PAST MEDICAL HISTORY: History of alcoholic pancreatitis. PAST SURGICAL HISTORY: Achilles tendon repair on the left. MEDICATIONS: 1. Probiotic. 2. Plant based enzymes. ALLERGIES: No known drug allergies. FAMILY HISTORY: Mom at the age of 68. She had liver cancer and hypertension. Dad at the age of 82, he had dementia. SOCIAL HISTORY: The patient smokes tobacco on occasion. He is a former alcoholic quitting 3 years ago. He has not drunk since. 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 He has not . He has no children. He indicates that his sister, Milvia would be his surrogate decision maker. REVIEW OF SYSTEMS: A complete 11-system review of systems is obtained. Pertinent positives and negatives are as per HPI and otherwise negative. PHYSICAL EXAM: Blood pressure 149/85, pulse 59, respirations 18, temp 98.5, O2 sat 99% on room air. General: The patient is a well-developed, thin young male seen sitting up in the stretcher in no acute distress. HEENT: Pupils are equal and round. Extraocular muscles are intact. Oropharynx is clear. Oral mucosa is moist. There is no submandibular, cervical, or supraclavicular adenopathy. Thyroid is not enlarged. No thyroid nodules are noted. Cardiac: Normal S1, S2. Regular rate and rhythm. I do not appreciate any murmurs. There is no lower extremity edema. Pulmonary: Lungs are clear to auscultation bilaterally. Abdomen: Bowel sounds are present. Abdomen is soft, nontender, nondistended. Musculoskeletal: There is no cyanosis or clubbing of the digits. There is full active range of motion of all 4 extremities. Skin is warm and dry. There are no rashes. The patient does have a few excoriated pustules or papules on the right posterior upper arm. Neuro: Cranial nerves II through XII are grossly intact. Sensation is intact to light touch throughout. Strength is 5/5 and symmetric in both upper and lower extremities bilaterally. Psych: The patient is alert. He is oriented x3. Affect appears appropriate. DIAGNOSTIC STUDIES/LAB DATA: Labs: WBC 4.7, hemoglobin 15.6, hematocrit 44, platelets 211. Sodium 131, potassium 4.1, chloride 95, CO2 of 29, BUN 16, creatinine 1.0, glucose 692, calcium 9.6. Bilirubin 0.8, AST 16, ALT 23, alk phos 74. CRP less than 1, albumin 4.3. ASSESSMENT AND PLAN: Mr. Lr is a 28-year-old male, who has past history of alcoholism and alcoholic pancreatitis with no recent medical history who presents to the emergency room with complaints of dizziness, increased thirst, increased urination and weight loss and is diagnosed with new diabetes. Diabetes. At this point, it is unclear if the patient is a late onset of type 1 diabetic or type 2 diabetic. While he is young, he is older than I would anticipate for the diagnosis of type 1 diabetes; however, he is quite thin, which would go against type 2 diabetes. Because of this not being clear, the patient will have anti-SERA and islet antibody sent. A hemoglobin A1c is pending. I gave extensive education to the patient regarding his diabetes and how it needs to be managed. The patient was able to meet with a dietitian prior to leaving the emergency room. As there are no significant lab abnormalities outside of his marked hyperglycemia, it is felt that the patient can be started on insulin and be managed as an outpatient. While the patient is 65 kilograms and recommendation is per half a unit per kilogram. The patient believes that he will be able to significantly modify his diet. He recognizes that he eats a tremendous amount of carbs per day. As he is going to be cutting out a significant portion of his carbohydrate intake, I will send the patient out on 10 units of Lantus daily. The patient gave himself an injection of Lantus of 15 units in the emergency room. I verbally explained how to use a Lantus pen to the patient and gave him the link to watch the video and how to administer Lantus via the Lantus SoloSTAR pen. We watched this video together. I answered any questions he had. I also reviewed with the patient on how to check his fingersticks. I have recommended that he check them a.c. and h.s. and keep a consistent record of this. I have asked the patient to follow up with his primary care provider in the next 1 week. The patient does state that he would prefer to establish with a provider on this side of the young as it is difficult for him to get to the other side. I gave him the number for [facility] Internal Medicine. He may be able to establish at the [facility]. Additionally, I have provided Dr. Cuenca's phone number and the information on the [facility]. At the time of this dictation, the anti-SERA antibody an1d islet antigen antibody studies are pending as is his hemoglobin A1c. As noted above, the patient has minimal lab abnormalities despite his marked hyperglycemia. We have reviewed at length how to check his fingersticks and to administer Lantus via the Lantus SoloSTAR pen. The patient feels confident he will be able to do this at home. He is meeting with a dietitian prior to leaving the emergency room. The patient will be discharge from the ER today. TIME SPENT: Sixty-five minutes was spent on this consultation. Over half was spent providing counseling and education on his new diagnosis of diabetes and how to manage this. [id number]/[facility] #: [id number] LUIS
== END 2019-02-11 11:05 | disposition home or self-care (01) ==
LOC: ED 06:45
DX: E11.65 Type 2 diabetes mellitus with hyperglycemia (principal); F17.210 Nicotine dependence, cigarettes, uncomplicated; Z79.4 Long term (current) use of insulin; Z79.899 Other long term (current) drug therapy
CPT/HCPCS: 36415; 80053; 83036; 85025; 86140; 86341; 96360; 96361; 99283; J1815

== ENCOUNTER 2019-02-13 13:29 | Emergency (ER) | payer OTHER ==
[2019-02-13 13:54] LABS: ABS Lymphocytes 1.4 10^3/ul (1.0-4.8); ABS Monocytes 0.3 10^3/ul (0-0.8); ABS Neutrophils 1.9 10^3/ul (1.5-7.7); Hematocrit 39 % (42-52); Hemoglobin 13.6 g/dL (14.0-18.0); Lymphocyte % 38.1 %; Mean Corpuscular HGB Conc 35 g/dL (31-36); Mean Corpuscular Hemoglobin 30 pg (27-31); Mean Corpuscular Volume 86 fL (80-94); Mean Platelet Volume 8.1 fL (7.4-10.4); Nucleated Red Blood Cells % 0.1; Platelet Count 191 10^3/uL (150-450); Red Cell Distribution Width 13 % (10-15); White Blood Count 3.7 10^3/uL (3.5-10.8)
[2019-02-13] MEDS ORDERED: NS 0.9% 1000 ML** 1,000 ML IV ONE ×2 (14:13→14:14)
[2019-02-13 14:14] LABS: ALT 49 U/L (7-52); AST 39 U/L (13-39); Alkaline Phosphatase 59 U/L (34-104); Anion Gap 1 mmol/L (2-11); BUN/Creatinine Ratio 12.3 (8-20); Blood Urea Nitrogen 13 mg/dL (6-24); C Reactive Protein < 1.00 mg/L (<8.01); CO2 Carbon Dioxide 32 mmol/L (22-32); Chloride 96 mmol/L (101-111); EGFR African American 99.3 (>60); Potassium 4.2 mmol/L (3.5-5.0); Sodium 129 mmol/L (135-145)
[2019-02-13] MEDS ORDERED: Insulin REGULAR(*) 1 UNITS UNIT IV PUSH ONE (14:14)
--- NOTE | 2019-02-13 14:14 | ED ---
HPI Diabetic - HPI Summary HPI Summary: The patient is a 28 y/o M presenting to [facility] with a chief complaint of possible hyperglycemia without official dx of DM starting 3 days ago with worsening today. At 1030 this morning, he had been at work, he drank some tea without sugar, but then he had a sudden onset of blurred vision, overall discomfort, and lethargy. He then ate soup, two slices of bread, and a banana which did not alleviate or worsen his symptoms. He additionally c/o blurred vision, weakness, abd pain, and SOB with a weird chest sensation. He denies any vomiting, diarrhea, or fever. He reports that he had been in the ED 2 days ago with similar symptoms, and he was told that he may have diabetes and was prescribed insulin 10 units with discharge. PMHx: pancreatitis, Achilles surgery. Nonsmoker, no EtOH (3 years), no substance use. Medications reviewed. Allergies noted. - History Of Current Complaint Chief Complaint: EDDiabeticProb Time Seen by Provider: 02/13/19 14:04 Hx Obtained From: Patient Onset/Duration: Sudden Onset, Still Present Timing: Hours Severity Initially: Moderate Severity Currently: Mild Character: Alert, Lethargic Aggravating: Other - possibly new dx of DM Alleviating: Nothing - food to no relief Associated Signs & Symptoms: Abdominal Pain, Shortness of Breath - Allergies/Home Medications Allergies/Adverse Reactions: Allergies Allergy/AdvReac Type Severity Reaction Status Date / Time DDT Allergy Difficulty Uncoded 02/11/19 06:48 Breathing PMH/Surg Hx/FS Hx/Imm Hx Endocrine/Hematology History: Denies: Hx Diabetes Cardiovascular History: Denies: Hx Hypertension, Hx Pacemaker/ICD, Other Cardiovascular Problems/ Disorders Respiratory History: Denies: Other Respiratory Problems/Disorders GI History: Denies: Hx Jaundice, Other GI Disorders History: Denies: Hx Renal Disease, Other Problems/Disorders Musculoskeletal History: Reports: Other Musculoskeletal History - Torn achilles tendon- left Denies: Hx Rheumatoid Arthritis, Hx Osteoporosis Sensory History: Denies: Hx Contacts or Glasses, Hx Hearing Aid Opthamlomology History: Denies: Hx Contacts or Glasses Neurological History: Denies: Other Neuro Impairments/Disorders Psychiatric History: Denies: Hx Panic Disorder - Surgical History Surgery Procedure, Year, and Place: ENDOSCOPY. left Achilles tendon repair 4/18 /19 Hx Anesthesia Reactions: No Infectious Disease History: No Infectious Disease History: Reports: Hx Hepatitis - HEP B, History Other Infectious Disease - HSV 1 Denies: Traveled Outside the [place] in Last 30 Days - Family History Known Family History: Positive: Unknown, Cardiac Disease, Other - liver cancer ( mom), father of dementia - Social History Alcohol Use: None Hx Substance Use: No Substance Use Type: Reports: None Hx Tobacco Use: Yes Smoking Status (MU): Current Some Day Smoker Type: Cigarettes Amount Used/How Often: Rarely Have You Smoked in the Last Year: Yes Review of Systems Positive: Other - lethargic with generalized weakness. Negative: Fever Positive: Blurred Vision Positive: Chest Pain - "weird sensation" Positive: Shortness Of Breath Positive: Abdominal Pain. Negative: Vomiting, Nausea All Other Systems Reviewed And Are Negative: Yes Physical Exam - Summary Physical Exam Summary: Constitutional: Well-developed, Well-nourished, Alert. (-) Distressed Skin: Warm, Dry HENT: Dry oral mucosa, Normocephalic; Atraumatic Eyes: Conjunctiva normal Neck: Musculoskeletal ROM normal neck. (-) JVD, (-) Stridor, (-) Tracheal deviation Cardio: Rhythm regular, rate normal, Heart sounds normal; Intact distal pulses; The pedal pulses are 2+ and symmetric. Radial pulses are 2+ and symmetric. (-) Murmur Pulmonary/Chest wall: Effort normal. (-) Respiratory distress, (-) Wheezes, (-) Rales Abd: Soft, (+) mild epigastric tenderness, (-) Distension, (-) Guarding, (-) Rebound Musculoskeletal: (-) Edema Lymph: (-) Cervical adenopathy Neuro: Alert, Oriented x3 Psych: Mood and affect Normal Triage Information Reviewed: Yes Vital Signs On Initial Exam: Initial Vitals Temp Pulse Resp BP Pulse Ox 97.5 F 72 18 131/75 100 02/13/19 13:30 02/13/19 13:30 02/13/19 13:30 02/13/19 13:30 02/13/19 13:30 Vital Signs Reviewed: Yes Diagnostics - Vital Signs Vital Signs Temp Pulse Resp BP Pulse Ox 02/13/19 13:30 97.5 F 72 18 131/75 100 - Laboratory Lab Results: Lab Results 02/13/19 02/13/19 02/13/19 Range/Units 13:38 13:45 13:45 WBC 3.7 (3.5-10.8) 10^3/uL RBC 4.50 (4.18-5.48) 10^6 /uL Hgb 13.6 L (14.0-18.0) g/dL Hct 39 L (42-52) % MCV 86 (80-94) fL MCH 30 (27-31) pg MCHC 35 (31-36) g/dL RDW 13 (10-15) % Plt Count 191 (150-450) 10^3/uL MPV 8.1 (7.4-10.4) fL Neut % (Auto) 52.5 % Lymph % (Auto) 38.1 % [place] % (Auto) 7.8 % Eos % (Auto) 1.0 % Baso % (Auto) 0.6 % Absolute Neuts (auto) 1.9 (1.5-7.7) 10^3/ul Absolute Lymphs (auto) 1.4 (1.0-4.8) 10^3/ul Absolute Monos (auto) 0.3 (0-0.8) 10^3/ul Absolute Eos (auto) 0.0 (0-0.6) 10^3/ul Absolute Basos (auto) 0.0 (0-0.2) 10^3/ul Absolute Nucleated RBC 0.0 10^3/ul Nucleated RBC % 0.1 VBG pH 7.40 (7.32-7.43) VBG pCO2 51 (41-51) mmHg VBG pO2 < 38.0 (35-45) mmHg VBG HCO3 27.2 (24-28) mmol/L VBG O2 Saturation 24.9 L (70-80) % VBG Base Excess 5.5 H (0.0-4.0) mmol/L POC Glucose (mg/dL) > 444 H* (70-100) mg/dL Result Diagrams: 02/13/19 13:45 02/13/19 13:45 Lab Statement: Any lab studies that have been ordered have been reviewed, and results considered in the medical decision making process. Re-Evaluation - Re-Evaluation First Eval Re-Evaluation Time: 15:25 Comment: We discussed results and plan for discharge with follow up for understanding more about being diagnosed with diabetes. Diabetic Course/Dx - Course Course Of Treatment: Patient is here with hyperglycemia. Patient seen here 3 days ago with new diagnosis of possible diabetes. Patient was started on an insulin. After consultation with internal medicine. Patient was unable to fill his prescription until the night prior to arrival here. Upon arrival here , patient was overall well-appearing but did have a glucose in the 500s. Patient was given 10 units of insulin with improvement in his glucose. Patient was not in DKA. Patient had no other abnormality required admission. Patient had follow-up with primary care doctor the day after his visit here. Patient was encouraged to start a diabetic diet and to start his insulin as prescribed. - Diagnoses Provider Diagnoses: Hyperglycemia Discharge ED - Sign-Out/Discharge Documenting (check all that apply): Patient Departure - Patient will be discharged home. Patient Received Moderate/Deep Sedation with Procedure: No - Discharge Plan Condition: Stable Disposition: HOME Patient Education Materials: Nondiabetic Hyperglycemia (ED) Referrals: Paulo Puente MD [Primary Care Provider] - 2 Days Additional Instructions: Continue use of your medication that you picked up last night. Follow up with your primary care provider for further assessment in 2-3 days. Return to the emergency department for any new or worsening symptoms. - Billing Disposition and Condition Condition: STABLE Disposition: Home - Attestation Statements Document Initiated by Fern: Yes Documenting Jesseibe: Rosemary Moreira Provider For Whom Fern is Documenting (Include Credential): Dr. Christopher Narayan MD Scribe Attestation: Rosemary Lezama scribed for Dr. Christopher Narayan MD on 02/15/19 at 1058. Scribe Documentation Reviewed: Yes Provider Attestation: The documentation as recorded by the Rosemary guan accurately reflects the service I personally performed and the decisions made by me, Dr. Christopher Narayan MD Status of Scrjustine Document: Viewed
[2019-02-13 14:17] LABS: Glucose 542 mg/dL (70-100)
[2019-02-13 15:43] VITALS: BP 00/0
== END 2019-02-13 15:43 | disposition home or self-care (01) ==
LOC: ED 13:29
DX: R73.9 Hyperglycemia, unspecified (principal); R10.9 Unspecified abdominal pain; R06.02 Shortness of breath; Z72.0 Tobacco use
CPT/HCPCS: 36415; 80053; 82803; 82947; 83036; 83605; 83690; 85025; 86140; 96360; 99283